=== PATIENT | female | born 1945 | race Caucasian/White ===

== ENCOUNTER 2017-01-07 17:12 | Emergency (ER) | payer MEDICARE ==
[~2017-01-07] VITALS: Ht 162.6 cm; Wt 65.0 kg
[~2017-01-07 17:12] MED LIST: ATENOLOL50 MG; ATENOLOL50 MG PO; BABY ASPIRIN81 MG OR; FISH OIL1000 MG PO; FLONASE NASAL50 MCG; FLUZONE SPLT1 M1 IM; GLUCOSAMINE1 TA1 OR; MAXZIDE OR; MAXZIDE-25MG1 COMBO OR; METFORMIN500 MG OR; METFORMIN500 MG PO; MICRO-K10 MEQ PO; MULTIVITAM10 OR; PNEUMOVAX 23 IM; SIMVASTATIN40 MG PO; TRUETEST STRIPS SC; VITAMIN D1000 UNI1 OR; [UNRECOGNIZED DRUG - OTHER] PO
[2017-01-07] MEDS ORDERED: LISINOPRIL2.5 MG PO (17:30)
[2017-01-07 19:39] LABS: HEMOGLOBIN 15.1 g/dl (12.0-16.0); IMMATURE GRANULOCYTES 0.4 % (0.0-1.0); MEAN CELL VOLUME 91.8 fL CALC (80.0-100.0); MEAN CORPUSCULAR HGB 30.1 pG CALC (26.0-32.0); MEAN CORPUSCULAR HGB CONC 32.8 g/L CALC (32.0-36.0); NEUT# 4.74 thou/uL (2.00-7.15); RED BLOOD COUNT 5.01 mill/uL (4.20-5.60); RED CELL DISTRI WIDTH 12.5 % (11.5-15.5)
[2017-01-07 19:58] LABS: ALBUMIN 5.1 g/dL (3.2-5.0); ALKALINE PHOSPHATASE 145 u/l (38-126); ANION GAP 19 (6-22 (CALC)); BILIRUBIN, TOTAL 0.8 mg/dL (0.0-1.4); BUN 19 mg/dL (8-23); BUN/CREATININE RATIO 25 (12-20 (CALC)); CALCIUM 10.8 mg/dL (8.4-10.2); CARBON DIOXIDE 27 mmol/l (22-30); CHLORIDE 99 mmol/l (95-108); CREATININE 0.8 mg/dL (0.5-1.0); GFR > 60 ML/MIN (>=60 (CALC)); GFR FOR AFR.AMER. > 60 ML/MIN (>=60 (CALC)); GLUCOSE 109 mg/dL (82-115); POTASSIUM 4.3 mmol/l (3.5-5.1); SGOT/AST 57 u/l (9-36); SGPT/ALT 46 u/l (11-66); SODIUM 141 mmol/l (137-146); TOTAL PROTEIN 9.2 g/dL (6.3-8.2)
[2017-01-07] MEDS ORDERED: KEFLEX500 M1 PO (21:10)
[2017-01-07] MEDS ORDERED: IBUPROFEN600 MG PO (21:10)
[2017-01-07 21:20] VITALS: BP 124/77
== END 2017-01-07 21:23 | disposition home or self-care (01) ==
LOC: ED 17:12
PROVIDERS: Emergency Medicine
DX: S70.361A Insect bite (nonvenomous), right thigh, initial encounter (principal); L08.9 Local infection of the skin and subcutaneous tissue, unspecified; I10 Essential (primary) hypertension; E78.00 Pure hypercholesterolemia, unspecified; E11.9 Type 2 diabetes mellitus without complications; W57.XXXA Bitten or stung by nonvenomous insect and other nonvenomous arthropods, initial encounter

== ENCOUNTER 2017-03-06 11:03 | Emergency (ER) | payer MEDICARE ==
[~2017-03-06] VITALS: Ht 162.6 cm; Wt 65.0 kg
[~2017-03-06 11:03] MED LIST changes: +IBUPROFEN600 MG PO; +KEFLEX500 M1 PO; +LISINOPRIL2.5 MG PO
[2017-03-06] MEDS ORDERED: TRAMADOL HYDROC50 MG PO (11:19)
[2017-03-06] MEDS ORDERED: FLEXERIL PO (11:19)
[2017-03-06] MEDS ORDERED: EC-NAPROSYN500 MG PO (11:19)
[2017-03-06 11:28] VITALS: BP 140/68
== END 2017-03-06 11:50 | disposition home or self-care (01) ==
LOC: ED 11:03
DX: M54.32 Sciatica, left side (principal)

== ENCOUNTER 2017-05-05 10:34 | Emergency (ER) | payer MEDICARE ==
[~2017-05-05] VITALS: Ht 162.6 cm; Wt 60.0 kg
[~2017-05-05 10:34] MED LIST changes: +EC-NAPROSYN500 MG PO; +FLEXERIL PO; +TRAMADOL HYDROC50 MG PO
[2017-05-05] MEDS ORDERED: NORCO1 TA1 PO (11:15)
[2017-05-05] MEDS ORDERED: MOTRIN400 MG PO (11:15)
[2017-05-05 11:35] VITALS: BP 125/71
== END 2017-05-05 11:36 | disposition home or self-care (01) ==
LOC: ED 10:34
PROC: 2W3CX1Z Immobilization of Right Lower Arm using Splint (ICD-10-PCS; principal; 2017-05-05)
DX: S52.501A Unspecified fracture of the lower end of right radius, initial encounter for closed fracture (principal); I10 Essential (primary) hypertension; E78.00 Pure hypercholesterolemia, unspecified; E11.9 Type 2 diabetes mellitus without complications; W01.0XXA Fall on same level from slipping, tripping and stumbling without subsequent striking against object, initial encounter; Y92.009 Unspecified place in unspecified non-institutional (private) residence as the place of occurrence of the external cause

== ENCOUNTER 2018-04-15 11:07 | Day surgery (SDC) | payer MEDICARE ==
[~2018-04-15] VITALS: Ht 162.6 cm; Wt 63.5 kg
[~2018-04-15 11:07] MED LIST changes: +MAXZIDE-2537.5 MG/TA PO; +MOTRIN400 MG PO; +NORCO1 TA1 PO; +VITAMIN D35000 UNI1 PO; +VITAMIN E400 UNIT PO; +ZESTRIL10 M1 PO
[2018-04-15 15:43] VITALS: BP 106/51
== END 2018-04-15 16:10 | disposition home or self-care (01) ==
LOC: ENDO 11:07 → ORM 11:15 → ENDO 14:55 → ORM 15:45 → ENDO 15:45 → ORM 17:30 → ENDO 18:30 → ORM 22:00
PROVIDERS: ATTEND Internal Medicine Gastroenterology
PROC: 0DB78ZX Excision of Stomach, Pylorus, Via Natural or Artificial Opening Endoscopic, Diagnostic (ICD-10-PCS; principal; 2018-04-15)
DX: K21.9 Gastro-esophageal reflux disease without esophagitis (principal); K29.50 Unspecified chronic gastritis without bleeding; K29.80 Duodenitis without bleeding; K22.2 Esophageal obstruction; K74.60 Unspecified cirrhosis of liver; K75.81 Nonalcoholic steatohepatitis (NASH); K76.0 Fatty (change of) liver, not elsewhere classified; I10 Essential (primary) hypertension; E11.9 Type 2 diabetes mellitus without complications; Z86.010 Personal history of colon polyps

== ENCOUNTER → 2018-05-26 | Outpatient (REF) | payer MEDICARE ==
[2018-05-26 09:23] LABS: ALBUMIN 4.3 g/dL (3.2-5.0); ALKALINE PHOSPHATASE 156 u/l (38-126); ANION GAP 15 (6-22 (CALC)); BILIRUBIN, TOTAL 0.5 mg/dL (0.0-1.4); BUN 19 mg/dL (8-23); BUN/CREATININE RATIO 25 (12-20 (CALC)); CARBON DIOXIDE 26 mmol/l (22-30); CHLORIDE 105 mmol/l (95-108); CREATININE 0.8 mg/dL (0.5-1.0); GFR > 60 ML/MIN (>=60 (CALC)); GFR FOR AFR.AMER. > 60 ML/MIN (>=60 (CALC)); POTASSIUM 4.1 mmol/l (3.5-5.1); SGOT/AST 57 u/l (9-36); SODIUM 142 mmol/l (137-146); TOTAL PROTEIN 7.6 g/dL (6.3-8.2)
== END | disposition home or self-care (01) ==
LOC: ULTRASND 08:05
PROVIDERS: ATTEND Internal Medicine Gastroenterology
DX: K76.0 Fatty (change of) liver, not elsewhere classified (principal); K75.81 Nonalcoholic steatohepatitis (NASH); R94.5 Abnormal results of liver function studies

== ENCOUNTER 2019-02-02 10:23 | Emergency (ER) | payer MEDICARE ==
[~2019-02-02] VITALS: Ht 162.6 cm; Wt 70.0 kg
[~2019-02-02 10:23] MED LIST changes: +ASPIRIN 8181 MG PO; -BABY ASPIRIN81 MG OR
[2019-02-02] MEDS ORDERED: METFORMIN500 M2 PO (10:46)
[2019-02-02] MEDS ORDERED: LISINOPRIL10 M1 PO (10:47)
[2019-02-02] MEDS ORDERED: SIMVASTATIN40 MG PO (10:47)
[2019-02-02] MEDS ORDERED: MULTI VIT PO (10:49)
[2019-02-02] MEDS ORDERED: DELTASONE20 MG PO (12:56)
[2019-02-02] MEDS ORDERED: ULTRAM50 M1 PO (12:56)
[2019-02-02 13:00] VITALS: BP 119/64
== END 2019-02-02 13:00 | disposition home or self-care (01) ==
LOC: ED 10:23
DX: M54.5 Low back pain (principal); M47.817 Spondylosis without myelopathy or radiculopathy, lumbosacral region; M79.662 Pain in left lower leg